=== PATIENT | male | born 1965 | race Caucasian/White ===

== ENCOUNTER 2017-05-04 10:05 | Emergency (ER) | payer BC ==
[2017-05-04] MEDS ORDERED: CHLORHEXIDINE GLUCONATE 4 % 15 ML UD TOP ONE (10:19)
[2017-05-04] MEDS ORDERED: LIDOCAINE 1% W/ EPINEPHRINE 20 ML VIAL INJ ONE (10:19)
[2017-05-04] MEDS ORDERED: LIDOCAINE 1% 10 ML VIAL INJ ONE (10:19)
[2017-05-04] MEDS ORDERED: POVIDONE IODINE 10 % 15 ML UD TOP ONE (10:19)
--- NOTE | 2017-05-04 10:22 | ED.PDOC ---
History of Present Illness - General Chief Complaint: Skin/Abrasion/Tear Stated Complaint: fish hook right leg Time Seen by Provider: 05/04/17 10:19 Source: patient Exam Limitations: no limitations - History of Present Illness Initial Comments: Edgar Sheehan 51 y/o male Timing/Duration: just prior to arrival Severity: mild Location: extremities - right leg Improving Factors: nothing Worsening Factors: movement Associated Symptoms: denies symptoms Home Medications: Ambulatory Orders Acetaminophen W/ Codeine [Tylenol W/ CODEINE #3] 1 ea PO Q4HR PRN #14 05/04/17 Amoxicillin [Amoxil] 1,000 mg PO BID #30 cap 05/04/17 Review of Systems - Review of Systems Constitutional: States: no symptoms reported EENTM: States: no symptoms reported Respiratory: States: no symptoms reported Cardiology: States: no symptoms reported Gastrointestinal/Abdominal: States: no symptoms reported Genitourinary: States: no symptoms reported Musculoskeletal: States: no symptoms reported Skin: States: see HPI Past Medical History (General) - Patient Medical History Hx Hypertension: Yes Surgical History: cholecystectomy Family Medical History - Family History Father Family History: No Known Living Status: Still Living Physical Exam - Physical Exam General Appearance: Alert, No apparent distress Eyes, Ears, Nose, Throat Exam: PERRL/EOMI, normal ENT inspection Neck: non-tender, full range of motion Cardiovascular/Chest: normal peripheral pulses, no murmur Respiratory: chest non-tender, lungs clear Gastrointestinal/Abdominal: normal bowel sounds, non tender, soft Back Exam: normal inspection Extremity: non-tender, no calf tenderness Skin Exam: warm/dry, normal color Skin Problem Location: other - fish hook right leg Lymphatic: no adenopathy Progress - Progress Progress: 05/04/17 10:43 Vital Signs - 8 hr 05/04/17 10:06 Temperature 97.6 F Pulse Rate [ 96 H Left Radial] Respiratory 18 Rate Blood Pressure 136/69 [Left Arm] O2 Sat by Pulse 98 Oximetry Procedures - Foreign Body Removal Foreign Body Removal: fish hook - sq layer Foreign Body Physician Comment:: skin infiltration with lidocaine 1 % /epi then fish hook pulled out embeded Departure - Departure Clinical Impression: Penetrating foreign body of skin of right lower leg Qualifiers: Encounter type: initial encounter Qualified Code(s): S81.841A - Puncture wound with foreign body, right lower leg, initial encounter Time of Disposition: 10:47 Disposition: Discharge to Home or Self Care Condition: Good Instructions: DI for Removal of Foreign Body From Skin Prescriptions: Acetaminophen W/ Codeine [Tylenol W/ CODEINE #3] 1 ea PO Q4HR PRN #14 PRN Reason: Pain Amoxicillin [Amoxil] 1,000 mg PO BID #30 cap Home Medications: Ambulatory Orders Acetaminophen W/ Codeine [Tylenol W/ CODEINE #3] 1 ea PO Q4HR PRN #14 05/04/17 Amoxicillin [Amoxil] 1,000 mg PO BID #30 cap 05/04/17 Additional Instructions: RETURN TO EMERGENCY ROOM NEEDED
[2017-05-04 10:40] VITALS: BP 136/69; TEMP 97.6; O2SAT 98
== END 2017-05-04 10:45 | disposition home or self-care (01) ==
LOC: ER 10:05
DX: S80.851A Superficial foreign body, right lower leg, initial encounter (principal); X58.XXXA Exposure to other specified factors, initial encounter; Y92.9 Unspecified place or not applicable